=== PATIENT | male | born 1955 | race Caucasian/White ===

== ENCOUNTER → 2016-06-15 | Outpatient (CLI) | payer OTHER ==
[~2016-06-15] MED LIST: DEPO METHYLPREDNISOLONE 40 MG/ML SDV ONE; IOPAMIDOL (ISOVUE 370) 100 ML BTL IV ONE; LIDOCAINE 1% 30 ML SDV ONE; NA BICARBONATE 50 MEQ/50 ML VIAL ONE; ROPIVACAINE HCL 150 MG/30 ML INJ ONE
== END ==
LOC: FIMAGING 11:08
PROVIDERS: ATTEND Physician Assistant
PROC: 3E0U3BZ Introduction of Anesthetic Agent into Joints, Percutaneous Approach (ICD-10-PCS; principal; 2016-06-15)
PROC: 3E0U33Z Introduction of Anti-inflammatory into Joints, Percutaneous Approach (ICD-10-PCS; principal; 2016-06-15)
DX: M25.552 Pain in left hip (principal); M16.12 Unilateral primary osteoarthritis, left hip
CPT/HCPCS: J1020; J2795; Q9967

== ENCOUNTER → 2016-09-25 | Outpatient (CLI) | payer OTHER ==
[~2016-09-25] MED LIST changes: -DEPO METHYLPREDNISOLONE 40 MG/ML SDV ONE; +DEPO METHYLPREDNISOLONE 80 MG/ML SDV ONE; -LIDOCAINE 1% 30 ML SDV ONE; +LIDOCAINE 1% 300 MG/30 ML SDV ONE; -NA BICARBONATE 50 MEQ/50 ML VIAL ONE
== END ==
LOC: FIMAGING 12:45
PROVIDERS: ATTEND Physician Assistant
PROC: 3E0U33Z Introduction of Anti-inflammatory into Joints, Percutaneous Approach (ICD-10-PCS; principal; 2016-09-25)
PROC: 3E0U3BZ Introduction of Anesthetic Agent into Joints, Percutaneous Approach (ICD-10-PCS; principal; 2016-09-25)
DX: M16.2 Bilateral osteoarthritis resulting from hip dysplasia (principal)
CPT/HCPCS: J1040; J2795; Q9967